=== PATIENT | male | born 1980 | race Caucasian/White ===

== ENCOUNTER 2018-09-28 12:35 | Outpatient (CLI) | payer BC ==
--- NOTE | 2018-09-28 13:35 | RAD ---
THORACIC SPINE TWO VIEWS: HISTORY: Pain. COMPARISON: None. FINDINGS: No acute fracture or malalignment. The paraspinal soft tissues are unremarkable. The visualized rib s are normal. IMPRESSION: No acute fracture. Minimal spondylosis. POS: [facility]
--- NOTE | 2018-09-28 13:39 | RAD ---
LUMBAR SPINE TWO VIEWS: History: Pain. Comparison: None. FINDINGS: Five non-rib bearing lumbar type vertebra. No acute fracture or malalignment. Minimal narrowing of L4 -5 disc space. Mild narrowing at L5-S1 disc space. IMPRESSION: Low grade spondylosis lower lumbar spine. POS: [facility]
--- NOTE | 2018-09-28 14:18 | RAD ---
CERVICAL SPINE FOUR VIEWS: History: Pain. No injury. Comparison: None. FINDINGS: Open mouth odontoid view is normal. Mild straightening of the cervical spine. Mild narrowing at C4-5, C5-6 and C6-7 disc spaces with low grade uncinate process hypertrophy. 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 Low grade facet arthrosis. No acute fracture or malalignment. IMPRESSION: No acute fracture or malalignment. POS: [facility]
== END 2018-09-28 12:36 | disposition home or self-care (01) ==
LOC: BICRAD 12:35
PROVIDERS: ATTEND Chiropractor
DX: M54.6 Pain in thoracic spine (principal); M53.84 Other specified dorsopathies, thoracic region; M53.86 Other specified dorsopathies, lumbar region; M47.816 Spondylosis without myelopathy or radiculopathy, lumbar region; M47.814 Spondylosis without myelopathy or radiculopathy, thoracic region
CPT/HCPCS: 72050; 72070; 72100